=== PATIENT | male | born 1975 | race Caucasian/White ===

== ENCOUNTER 2017-10-30 23:45 | Emergency (ER) | payer MEDICARE, OTHER ==
[~2017-10-30] VITALS: Ht 180.3 cm; Wt 109.8 kg
[~2017-10-30 23:45] MED LIST: ALBU90OI INH; CITA20 PO; Citalopram HBr40 MG PO; DOXY100 PO; HYDACE5 PO; LEVSOD100 PO; NAPR500EC PO; OXYACE5T PO; PARO10 PO; PSEU120ER PO; Pantoprazole So40 MG PO; QUET25 PO; RXHYDACE PO; WARF1 PO; WARF5 PO
== END 2017-10-31 01:13 | disposition left against medical advice (07) ==
LOC: ER 23:45
DX: Z53.21 Procedure and treatment not carried out due to patient leaving prior to being seen by health care provider (principal)

== ENCOUNTER 2018-04-14 18:22 | Emergency (ER) | payer OTHER, MEDICARE ==
[~2018-04-14] VITALS: Ht 180.3 cm; Wt 105.2 kg
[2018-04-14] MEDS ORDERED: PANT40 PO (18:48)
[2018-04-18] MEDS ORDERED: ALPR.5 PO (11:55)
== END 2018-04-14 19:49 | disposition home or self-care (01) ==
LOC: ER 18:22
DX: M67.824 Other specified disorders of tendon, left elbow (principal); F43.10 Post-traumatic stress disorder, unspecified; Z88.0 Allergy status to penicillin; Z88.5 Allergy status to narcotic agent; Z88.8 Allergy status to other drugs, medicaments and biological substances; Z79.899 Other long term (current) drug therapy
CPT/HCPCS: 96372; 99282-25; J1885

== ENCOUNTER 2018-04-19 13:37 | Day surgery (SDC) | payer MEDICARE, OTHER ==
[~2018-04-19] VITALS: Ht 180.3 cm; Wt 110.2 kg
[~2018-04-19 13:37] MED LIST changes: +ALPR.5 PO; +PANT40 PO
--- NOTE | 2018-04-19 14:21 | NUR ---
Ambulatory in Day Surgery Surgical site prepped with 2% Chlorhexidine cloth wipe. History, Chart, Medications and Allergies reviewed before start of procedure.Lungs clear T/O to Auscultation. Patient confirms NPO status and agrees with scheduled surgery. Patient reports completing Chlorhexadine shower X2 prior to admission to hospital. PT BELONGINGS STOWED UNDER BED.
--- NOTE | 2018-04-19 18:00 | NUR ---
LE 1750 PT PROVIDED ICE PACKS AND ELEVATION. PROVIDED FOOD FLUID AND PAIN MEDS. PT MEDS DID NOT PASS OVER TO EMAR SO DOCUMENTED ON PAPER. INCISION COVERED IN ABX DRESSING. NO BLEEDING NOTED. Discharge instructions reviewed with patient. Patient verbalizes understanding. Copy given to patient to take home. Patient States Post-Procedure ride home has been arranged. Discharged via wheelchair to private car for ride home. ALL BELONGINGS RETURNED TO PATIENT.
== END 2018-04-19 22:52 | disposition home or self-care (01) ==
LOC: ORSCMMR 13:37 → ORD 15:00 → ORSCMMR 22:52
PROVIDERS: Orthopaedic Surgery
PROC: 0LQ40ZZ Repair Left Upper Arm Tendon, Open Approach (ICD-10-PCS; principal; 2018-04-19 15:00)
DX: M66.822 Spontaneous rupture of other tendons, left upper arm (principal); Z79.899 Other long term (current) drug therapy
CPT/HCPCS: C1713; J0330; J1100; J2250; J2405; J3010; J7120

== ENCOUNTER 2024-02-07 08:00 | Day surgery (SDC) | payer MEDICARE, OTHER ==
[~2024-02-07] VITALS: Ht 180.3 cm; Wt 118.2 kg
[~2024-02-07 08:00] MED LIST changes: +GABA300; +NS 500 ML IV SCH; +ZYRTEC10 M2 PO
[2024-02-07 08:28] VITALS: BP 127/85
--- NOTE | 2024-02-07 08:47 | NUR ---
Ambulatory in Day Surgery. History, Chart, Medications and Allergies reviewed before start of procedure. Patient confirms NPO status and agrees with scheduled surgery. Patient States Post-Procedure ride home has been arranged.
[2024-02-07] MEDS ORDERED: Benzocaine Oral Spray 0.5ML UD ONE (09:11)
[2024-02-07] MEDS ORDERED: propofoL 20 ML IV ONE ×2 (09:13→09:14)
--- NOTE | 2024-02-07 09:23 | NUR ---
02/07/24 0923 Luis Stuart MONITOR INTACT WITH CONTINUOUS PULSE OXIMETRY, CONTINUOUS END TITAL CO2, AND INTERMITTENT BLOOD PRESSURE.AND EKG ANESTHESIA PER DR. IGNACIO
[2024-02-07 09:36] VITALS: BP 137/89
--- NOTE | 2024-02-07 09:54 | NUR ---
Discharge instructions reviewed with patient. Patient verbalizes understanding. Copy given to patient to take home. Patient States Post-Procedure ride home has been arranged. Discharged via wheelchair to private car for ride home.
== END 2024-02-07 09:56 | disposition home or self-care (01) ==
LOC: ORSCMMR 08:00 → ORD 09:00 → ORSCMMR 09:00
PROVIDERS: Internal Medicine Gastroenterology
PROC: 0DB48ZX Excision of Esophagogastric Junction, Via Natural or Artificial Opening Endoscopic, Diagnostic (ICD-10-PCS; principal; 2024-02-07 09:00)
DX: K21.9 Gastro-esophageal reflux disease without esophagitis (principal); R10.13 Epigastric pain; K44.9 Diaphragmatic hernia without obstruction or gangrene; E03.9 Hypothyroidism, unspecified; Z79.899 Other long term (current) drug therapy; Z68.36 Body mass index [BMI] 36.0-36.9, adult
CPT/HCPCS: 88305; 88312; A9270; J2704; J7040

== ENCOUNTER → 2024-06-07 | Outpatient (CLI) | payer OTHER ==
[~2024-06-07] MED LIST changes: -NS 500 ML IV SCH
== END | disposition home or self-care (01) ==
LOC: LAB SHORT 14:49 → LAB 14:49
DX: E03.9 Hypothyroidism, unspecified (principal)
CPT/HCPCS: 84443

== ENCOUNTER → 2024-11-13 | Outpatient (CLI) | payer MEDICARE, OTHER ==
[2024-11-13 11:39] LABS: BASOPHILS ABSOLUTE AUTO 0.03 K/mm3 (0.00-0.23); BASOPHILS PERCENT AUTO 1 % (0-2); EOSINOPHILS ABSOLUTE AUTO 0.20 K/mm3 (0.00-0.68); EOSINOPHILS PERCENT AUTO 4 % (0-6); Hematocrit 44.8 % (37.0-53.0); Hemoglobin 14.6 g/dL (13.5-17.5); IMMATURE GRAN ABSOLUTE AUTO 0.02 K/mm3 (0.00-0.10); IMMATURE GRAN PERCENT AUTO 0 % (0-1); LYMPHOCYTES ABSOLUTE AUTO 1.52 K/mm3 (0.84-5.20); LYMPHOCYTES PERCENT AUTO 33 % (21-46); MONOCYTES ABSOLUTE AUTO 0.36 K/mm3 (0.16-1.47); MONOCYTES PERCENT AUTO 8 % (4-13); Mean Corpuscular HGB Conc 32.6 g/dL (31.5-36.5); Mean Corpuscular Volume 90 fL (80-100); NEUTROPHILS ABSOLUTE AUTO 2.49 K/mm3 (1.96-9.15); NEUTROPHILS PERCENT AUTO 54 % (41-73); NRBC ABSOLUTE 0.00 K/mm3 (0.00-0.02); NRBC Auto 0.0 /100 WBC (0.0-0.2); Platelet Count 225 K/mm3 (150-400); RDW Coefficient Variation 12.9 % (11.7-14.2); RDW Standard Deviation 42.5 fL (35.1-46.3)
[2024-11-13 12:01] LABS: Alanine Aminotransfer (ALT/SGP 32.0 U/L (12-78); Albumin, Blood 3.7 g/dL (3.4-5.0); Albumin/Globulin Ratio 1.1 (0.8-1.8); Anion Gap 8.0 mmol/L (3-11); Aspartate Aminotrans (AST/SGOT 26.0 U/L (12-37); Bilirubin, Total 0.5 mg/dL (0.1-1.0); Blood Urea Nitrogen 13.0 mg/dL (8-24); CO2, Blood 27.0 mmol/L (21-32); Calcium, Blood 8.7 mg/dL (8.5-10.1); Chloride, Blood 108.0 mmol/L (98-108); Creatinine, Blood 1.03 mg/dL (0.60-1.20); Globulin, Blood 3.5 g/dL (2.2-4.0); Glucose, Blood 102.0 mg/dL (70-99); Potassium, Blood 4.0 mmol/L (3.5-5.5); Sodium, Blood 139.0 mmol/L (136-145); Total Protein, Blood 7.2 g/dL (6.4-8.2)
[2024-11-15 12:01] LABS: ANTI-NUCLEAR AB ANA,IGG ELISA None Detected (None Detected)
[2024-11-15 14:24] LABS: RHEUMATOID FACTOR <10 IU/mL (0-14)
== END ==
LOC: LAB SHORT 09:21 → LAB 09:21
PROVIDERS: Nurse Practitioner Family
DX: M25.50 Pain in unspecified joint (principal)
CPT/HCPCS: 80053; 85025; 86038; 86431